=== PATIENT | female | born 1975 | race Caucasian/White ===

== ENCOUNTER 2022-10-11 09:30 | Emergency (ER) | payer MEDICAID ==
[~2022-10-11] VITALS: Ht 170.2 cm; Wt 86.2 kg
[~2022-10-11 09:30] MED LIST: INSULIN SUBQ; NITR100C15 PO
[2022-10-11 09:39] VITALS: BP 181/88
--- NOTE | 2022-10-11 09:44 | NUR ---
PT AMB TO BED 5
--- NOTE | 2022-10-11 11:32 | NUR ---
pt swabbed for covid(shahab) and flu. walked and handed to lab
--- NOTE | 2022-10-11 11:36 | NUR ---
Pt bibs for congestion and body ache for 2 days. Pt is a/o x 4, vss, no ss of acute distress, breathing equal and unlabored, speech clear, pt on monitor, has been seen by MD.
[2022-10-11] MEDS ORDERED: PROM118S6 PO (12:16)
[2022-10-11] MEDS ORDERED: NIRM1TAB PO (12:16)
[2022-10-11 12:31] VITALS: BP 158/71
--- NOTE | 2022-10-11 12:32 | NUR ---
Patient discharged with v/s stable. Written and verbal after care instructions ABOUT COVID-19 given and explained. Patient alert, oriented and verbalized understanding of instructions. Ambulatory with steady gait. All questions addressed prior to discharge. ID band removed. Patient advised to follow up with PMD. Rx of PAXLOVID, PROMETHAZINE given. Patient educated on indication of medication including possible reaction and side effects. Opportunity to ask questions provided and answered.
== END 2022-10-11 12:32 | disposition home or self-care (01) ==
LOC: MED 09:30
DX: U07.1 COVID-19 (principal); E11.22 Type 2 diabetes mellitus with diabetic chronic kidney disease; I12.0 Hypertensive chronic kidney disease with stage 5 chronic kidney disease or end stage renal disease; N18.6 End stage renal disease; E78.5 Hyperlipidemia, unspecified; Z79.899 Other long term (current) drug therapy; Z79.4 Long term (current) use of insulin
CPT/HCPCS: 71045; 99284

== ENCOUNTER 2023-09-18 11:16 | Emergency (ER) | payer MEDICAID ==
[~2023-09-18] VITALS: Ht 167.6 cm; Wt 86.6 kg
[~2023-09-18 11:16] MED LIST changes: +NIRM1TAB PO; +PROM118S6 PO
[2023-09-18 11:23] VITALS: BP 135/76; PULSE 81; RESP 20; TEMP 99.1; O2SAT 98
[2023-09-18] MEDS ORDERED: NIRM1TAB7 PO (13:56)
[2023-09-18] MEDS ORDERED: BENZ100C6 PO (13:56)
[2023-09-18] MEDS ORDERED: OLOP2.5D7 OP (13:56)
[2023-09-18 14:01] VITALS: TEMP 98
[2023-09-18 14:06] LABS: FLU A ANTIGEN negative (NEGATIVE); FLU B ANTIGEN NEGATIVE (NEGATIVE)
== END 2023-09-18 14:01 | disposition home or self-care (01) ==
LOC: MED 11:16
DX: U07.1 COVID-19 (principal); E11.22 Type 2 diabetes mellitus with diabetic chronic kidney disease; I12.0 Hypertensive chronic kidney disease with stage 5 chronic kidney disease or end stage renal disease; N18.6 End stage renal disease; Z99.2 Dependence on renal dialysis; Z79.899 Other long term (current) drug therapy; Z79.4 Long term (current) use of insulin
CPT/HCPCS: 99283